=== PATIENT | male | born 2000 | race Asian ===

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

== ENCOUNTER 2021-01-07 07:31 | Outpatient (CLI) | payer MEDICAID ==
--- NOTE | 2021-01-07 08:19 | CT Report ---
PROCEDURE: HEAD WO INDICATIONS: MEMORY IMPAIRMENT TECHNIQUE: Noncontrast 4.5 mm thick angled axial sections acquired from the foramen magnum to the vertex. For r adiation dose reduction, the following was used: automated exposure control, adjustment of mA and/or kV according to patient size. COMPARISON: None. FINDINGS: Image quality: Excellent. CSF spaces: Basal cisterns are patent. No extra-axial fluid collections. Ventricles are normal in size and shape. Brain: No midline shift. No intracranial masses or hemorrhage. Cedillo-white matter interface is norm al. Skull and face: Calvarium and visualized facial bones are intact, without suspicious lesions. Sinuses: Visualized sinuses and mastoids are clear. IMPRESSION: Normal for age, source of reported memory impairment is not seen. Reviewed by: Chad Moreno MD on 01/07/2021 8:18 AM PDT Approved by: Chad Moreno MD on 01/07/2021 8:18 AM PDT Station ID: [id number]
== END 2021-01-07 07:32 | disposition home or self-care (01) ==
LOC: DI 07:31
PROVIDERS: ATTEND Family Medicine
DX: R41.3 Other amnesia (principal)

== ENCOUNTER 2022-07-03 13:16 | Emergency (ER) | payer MEDICAID ==
--- NOTE | 2022-07-03 13:42 | ED Physician Documentation ---
History of Present Illness - Stated complaint Stated Complaint: R LEG PX - Chief complaint Chief Complaint: Ext Problem - Additonal information Additional information: 21-year-old male presents emergency department for evaluation of 1 month of right posterior thigh/hamstring gluteal pain. Reports that it began nonspecifically without any falls or trauma and initially he was able to manage the pain with Motrin but it is no longer effective. Now due to the pain he has difficulty bearing weight in fact he collapsed when I asked him to stand when getting out of bed. There is been no swelling or erythema. No history of similar in the past. Review of Systems Constitutional: denies: Fever, Chills Eyes: reports: Reviewed and negative Nose: reports: Reviewed and negative GI: reports: Reviewed and negative : reports: Reviewed and negative Musculoskeletal: reports: Extremity pain Neurologic: denies: Generalized weakness, Focal weakness, Numbness, Difficulty speaking Psychiatric: reports: Reviewed and negative PD PAST MEDICAL HISTORY - Past Medical History Cardiovascular: None Respiratory: None Endocrine/Autoimmune: None - Past Surgical History Past Surgical History: No - Present Medications Home Medications: Ambulatory Orders Medication Instructions Recorded Confirmed Cetirizine HCl [Zyrtec] 10 mg PO DAILY #5 capsule 06/02/15 dexAMETHasone [Decadron] 4 mg PO DAILY #5 tablet 06/02/15 Cetirizine [ZyrTEC] 10 mg PO DAILY #30 tablet 07/11/20 predniSONE [Deltasone] 10 mg PO [id number] #42 tab 07/11/20 predniSONE [Prednisone] 40 mg PO DAILY #10 tablet 08/19/20 predniSONE [Deltasone] 40 mg PO DAILY 5 Days #10 tablet 07/03/22 - Allergies Allergies/Adverse Reactions: Allergies Allergy/AdvReac Type Severity Reaction Status Date / Time No Known Drug Allergies Allergy Verified 07/03/22 13:25 - Social History Does the pt smoke?: No Smoking Status: Never smoker Does the pt drink ETOH?: No Does the pt have substance abuse?: No PD ED PE EXPANDED - General General: Alert, No acute distress - Cardiac Cardiac: Regular Rate, Radial strong equal, Pedal strong equal - Respiratory Respiratory: Clear to ausultation kendall. No: Distress, Labored - Abdomen Abdomen: Normal Bowel sounds. No: Tender to palpation - Extremities Extremities: Right thigh (Tenderness with palpation of the posterior hamstring as it extends up into the gluteal mass. No obvious mass, fluctuance erythema or swelling. Passive range of motion of the hip induces pain in the posterior hamstring. No tenderness of the proximal Femur or right lateral thigh. ), Pedal Pulses Present Results - Vitals Vitals: Vital Signs - 24 hr 07/03/22 13:21 Temperature 36.8 C Heart Rate 85 Respiratory 16 Rate Blood Pressure 142/85 H O2 Saturation 97 Oxygen O2 Source Room air - Labs Labs: Laboratory Tests 07/03/22 07/03/22 13:46 13:46 WBC 5.6 RBC 5.48 Hgb 16.2 Hct 46.8 MCV 85.4 MCH 29.6 MCHC 34.6 RDW 12.6 Plt Count 249 MPV 10.1 Neut # (Auto) 2.8 Lymph # (Auto) 2.3 [place] # (Auto) 0.4 Eos # (Auto) 0.1 Baso # (Auto) 0.0 Absolute Nucleated RBC 0.00 Nucleated RBC % 0.0 Sodium 141 Potassium 4.1 Chloride 104 Carbon Dioxide 30 Anion Gap 7.0 BUN 14 Creatinine 0.9 Estimated GFR (MDRD) 108 Glucose 100 Calcium 9.6 Total Bilirubin 0.8 AST 36 ALT 86 H Alkaline Phosphatase 38 L Total Protein 8.0 Albumin 4.8 Globulin 3.2 Albumin/Globulin Ratio 1.5 Lipase 27 - Rads (name of study) CR right leg/hip Radiology: Final report received (Unremarkable CT of the right upper thigh) PD MEDICAL DECISION MAKING - ED course Complexity details: reviewed results, re-evaluated patient, considered differential, d/w patient ED course: 21-year-old male presents emergency department for evaluation of 1 month worsening pain in the right posterior thigh. No history of falls or trauma. He has preserved muscle strength in the entire leg though any attempt to bear weight or walk on it is met with increased pain and buckling down to the knees. Here in the emergency department a CBC was without acute worrisome findings. His electrolytes were essentially unremarkable. We did do a CT of the right hip and thigh searching for occult fracture or sarcoma and it was unremarkable. The patient had minimal pain relief after a dose of Dilaudid. He has been able to ambulate in the emergency department using a walker. Departure - Departure Disposition: 01 Home, Self Care Clinical Impression: Right thigh pain Condition: Stable Record reviewed to determine appropriate education?: Yes Prescriptions: predniSONE [Deltasone] 40 mg PO DAILY 5 Days #10 tablet Comments: Kennedi The labs today were essentially normal. The CT that we did of your right hip and thigh was normal. The cause of your pain is not clear at this time but we will do a short course of steroids to see if that will help with pain and inflammation. I encourage you to follow closely with your primary care provider. This course of medication does not work you may benefit from being seen by a physical therapist. Return to the emergency department if you develop numbness in your genital area, have lost control of bowel or bladder function or sudden weakness in your leg
[2022-07-03] MEDS ORDERED: HYDROmorphone 1 MG/ML CARPUJECT IVP STA (13:44)
[2022-07-03 13:51] LABS: BASOPHILS % (AUTO) 0.5 %; EOSINOPHILS # (AUTO) 0.1 10^3/uL (0.0-0.7); HCT - HEMATOCRIT 46.8 % (42.0-52.0); HGB - HEMOGLOBIN 16.2 g/dL (14.0-18.0); LYMPHOCYTES # (AUTO) 2.3 10^3/uL (1.5-3.5); LYMPHOCYTES % (AUTO) 40.7 %; MEAN CORPUSCULAR HEMOGLOBIN 29.6 pg (27.0-31.0); MEAN CORPUSCULAR HGB CONC 34.6 g/dL (32.0-36.0); MEAN CORPUSCULAR VOLUME 85.4 fL (80.0-94.0); MEAN PLATELET VOLUME 10.1 fL (7.4-11.4); MONOCYTES # (AUTO) 0.4 10^3/uL (0.0-1.0); MONOCYTES % (AUTO) 6.6 %; NEUTROPHILS # (AUTO) 2.8 10^3/uL (1.5-6.6); PLT - PLATELET COUNT 249 10^3/uL (130-450); RED BLOOD COUNT 5.48 10^6/uL (4.70-6.10); RED CELL DISTRIBUTION WIDTH 12.6 % (12.0-15.0); WHITE BLOOD COUNT 5.6 x10^3/uL (4.8-10.8)
[2022-07-03 14:04] LABS: ALBUMIN 4.8 g/dL (3.2-5.5); ALBUMIN/GLOBULIN RATIO 1.5 (1.0-2.2); BILIRUBIN,TOTAL 0.8 mg/dL (0.2-1.0); CALCIUM 9.6 mg/dL (8.5-10.3); CREATININE 0.9 mg/dL (0.6-1.2); POTASSIUM 4.1 mmol/L (3.5-5.0)
--- NOTE | 2022-07-03 15:56 | CT Report ---
PROCEDURE: LOWER EXTREMITY W - RT INDICATIONS: 21-year-old male with one-month history of posterior right thigh pain TECHNIQUE: After administration of contrast 3 mm axial sections acquired of the right upper femur, with coronal and sagittal reformats. For radiation dose reduction, the following was used: automated exposure co ntrol, adjustment of mA and/or kV according to patient size. CONTRAST: IV CONTRAST: Optiray 320 ml: 100 PO CONTRAST: *NO PO CONTRAST COMPARISON: None. FINDINGS: Image quality: Excellent. Bones: Normal bone mineralization. No intrinsic osseous lesion. Joint spaces are preserved. No fract ure or dislocation Soft tissues: Unremarkable. Normal musculature. Fascial planes are maintained. Subcutaneous unremark able. Normal vasculature. IMPRESSION: Unremarkable CT of the right upper thigh Reviewed by: Stan Toribio MD on 07/03/2022 2:55 PM AKDT Approved by: Stan Toribio MD on 07/03/2022 2:55 PM AKDT Station ID: [id number]
[2022-07-03 16:12] VITALS: BP 138/72
== END 2022-07-03 16:16 | disposition home or self-care (01) ==
LOC: ED 13:16
DX: M79.661 Pain in right lower leg (principal)
CPT/HCPCS: 36415; 73701; 80053; 83690; 85025; 96374; 99282; 99284; J1170; Q9967

== ENCOUNTER 2022-07-16 12:21 | Outpatient (CLI) | payer MEDICAID | END 2022-07-16 12:22 | disposition EMS.NT | LOC: EMS 12:21 | DX: M79.605 Pain in left leg (principal) ==

== ENCOUNTER 2022-07-16 12:59 | Emergency (ER) | payer MEDICAID ==
[2022-07-16 15:13] LABS: BASOPHILS % (AUTO) 0.3 %; EOSINOPHILS # (AUTO) 0.1 10^3/uL (0.0-0.7); EOSINOPHILS % (AUTO) 1.5 %; HCT - HEMATOCRIT 46.2 % (42.0-52.0); HGB - HEMOGLOBIN 15.8 g/dL (14.0-18.0); LYMPHOCYTES # (AUTO) 2.5 10^3/uL (1.5-3.5); LYMPHOCYTES % (AUTO) 27.6 %; MEAN CORPUSCULAR HEMOGLOBIN 29.3 pg (27.0-31.0); MEAN CORPUSCULAR HGB CONC 34.2 g/dL (32.0-36.0); MEAN CORPUSCULAR VOLUME 85.7 fL (80.0-94.0); MEAN PLATELET VOLUME 9.8 fL (7.4-11.4); MONOCYTES # (AUTO) 0.4 10^3/uL (0.0-1.0); MONOCYTES % (AUTO) 4.5 %; NEUTROPHILS # (AUTO) 5.9 10^3/uL (1.5-6.6); NEUTROPHILS % (AUTO) 65.8 %; PLT - PLATELET COUNT 227 10^3/uL (130-450); RED BLOOD COUNT 5.39 10^6/uL (4.70-6.10); WHITE BLOOD COUNT 8.9 x10^3/uL (4.8-10.8)
[2022-07-16 15:31] LABS: ALBUMIN 4.7 g/dL (3.2-5.5); ALBUMIN/GLOBULIN RATIO 1.5 (1.0-2.2); BILIRUBIN,TOTAL 0.9 mg/dL (0.2-1.0); CALCIUM 9.8 mg/dL (8.5-10.3); POTASSIUM 4.1 mmol/L (3.5-5.0); TOTAL PROTEIN 7.8 g/dL (6.7-8.2)
[2022-07-16] MEDS: MORPHINE 2 MG/ML CARPUJECT IVP STA (15:39)
[2022-07-16] MEDS: KETOROLAC 30 MG/ML VIAL IVP STA (15:45)
[2022-07-16] MEDS: LIDOCAINE PATCH 5% TOP STA (15:48)
--- NOTE | 2022-07-16 15:55 | ED Physician Documentation ---
PD HPI BACK PAIN - Stated complaint Stated Complaint: R LEG PAIN - Chief complaint Chief Complaint: Back Pain - History obtained from History obtained from: Patient - Additional information Additional information: Patient is a 21-year-old male presenting for evaluation of pain to the right buttocks that radiates to the right leg that has been present for 2 Months. He denies any known trauma or injury that started the pain. He was seen in the emergency department a few weeks ago and given prednisone which she states initially helped but the pain has again returned over the last few days. He use s Motrin or acetaminophen once or twice a day. He denies any recent exertional activity on his legs.Certain movements make his pain worse. Rest makes them better. He has not tried ice or heat. He denies fever, chest pain, IV drug use, known malignancy, abdominal pain, dysuria, urinary or bowel incontinence. Review of Systems Constitutional: denies: Fever Nose: denies: Congestion Throat: denies: Sore throat Cardiac: denies: Chest pain / pressure Respiratory: denies: Dyspnea GI: denies: Abdominal Pain, Vomiting : denies: Dysuria, Incontinent Musculoskeletal: reports: Back pain, Extremity pain Neurologic: denies: Headache, Head injury PD PAST MEDICAL HISTORY - Past Medical History Past Medical History: No Cardiovascular: None Respiratory: None Endocrine/Autoimmune: None - Past Surgical History Past Surgical History: No - Present Medications Home Medications: Ambulatory Orders Medication Instructions Recorded Confirmed Cyclobenzaprine [Flexeril] 10 mg PO TID PRN #20 tablet 07/16/22 Lidocaine Patch 5% [Lidoderm Patch] 1 patch TOP DAILY PRN #10 patch 07/16/22 Oxycodone HCl/Acetaminophen 1 each PO Q6H PRN #10 tablet 07/16/22 [Percocet 5-325 mg Tablet] predniSONE [Deltasone] 20 mg PO [id number] #21 tab 07/16/22 - Allergies Allergies/Adverse Reactions: Allergies Allergy/AdvReac Type Severity Reaction Status Date / Time No Known Drug Allergies Allergy Verified 07/16/22 13:36 - Social History Does the pt smoke?: No Smoking Status: Never smoker Does the pt drink ETOH?: No Does the pt have substance abuse?: No - Immunizations Immunizations are current?: Yes PD ED PE NORMAL - General General: Alert and oriented X 3, No acute distress, Well developed/nourished - HEENT HEENT: Atraumatic, Moist mucous membranes - Neck Neck: Supple, no meningeal sign - Cardiac Cardiac: RRR, Strong equal pulses - Respiratory Respiratory: No respiratory distress, Clear bilaterally - Abdomen Abdomen: Normal bowel sounds, Soft, Non tender, Non distended - Rectal Rectal: Other (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, No saddle anesthesia, normal rectal tone) - Derm Derm: Warm and dry - Extremities Extremities: No deformity, No edema, No calf tenderness / cord, Other (Tenderness into right buttock with no redness or swelling) - Neuro Neuro: Alert and oriented X 3, No motor deficit, No sensory deficit, Normal speech Results - Vitals Vitals: Vital Signs - 24 hr 07/16/22 07/16/22 07/16/22 13:29 15:50 17:00 Temperature 36.6 C 36.7 C Heart Rate 80 77 87 Respiratory 16 15 16 Rate Blood Pressure 137/89 H 138/82 H 131/80 H O2 Saturation 99 99 100 Oxygen O2 Source Room air - Labs Labs: Laboratory Tests 07/16/22 07/16/22 15:07 15:07 WBC 8.9 RBC 5.39 Hgb 15.8 Hct 46.2 MCV 85.7 MCH 29.3 MCHC 34.2 RDW 13.0 Plt Count 227 MPV 9.8 Neut # (Auto) 5.9 Lymph # (Auto) 2.5 [place] # (Auto) 0.4 Eos # (Auto) 0.1 Baso # (Auto) 0.0 Absolute Nucleated RBC 0.00 Nucleated RBC % 0.0 Sodium 140 Potassium 4.1 Chloride 102 Carbon Dioxide 30 Anion Gap 8.0 BUN 15 Creatinine 1.0 Estimated GFR (MDRD) 95 Glucose 91 Calcium 9.8 Total Bilirubin 0.9 AST 48 H ALT 162 H Alkaline Phosphatase 37 L Total Protein 7.8 Albumin 4.7 Globulin 3.1 Albumin/Globulin Ratio 1.5 Lipase 27 PD MEDICAL DECISION MAKING - ED course Complexity details: reviewed results, re-evaluated patient, d/w patient ED course: Pt with R buttock to leg pain ongoing x 2 months. No red flag signs/symptoms. Well appearing. Normal rectal tone and strength to legs. Ct L spine with findings suggestive of S1 nerve impingement which goes along with patient's symptoms. Discussed plan with medications including steroid taper and need for f/u with PCP as may need further treatment. Pt advised on concerning symptoms to return for. Departure - Departure Disposition: 01 Home, Self Care Clinical Impression: Sciatica Qualifiers: Laterality: right Qualified Code(s): M54.31 - Sciatica, right side Condition: Stable Instructions: ED Sciatica Prescriptions: predniSONE [Deltasone] 20 mg PO [id number] #21 tab Cyclobenzaprine [Flexeril] 10 mg PO TID PRN #20 tablet PRN Reason: Spasms Lidocaine Patch 5% [Lidoderm Patch] 1 patch TOP DAILY PRN #10 patch PRN Reason: pain Oxycodone HCl/Acetaminophen [Percocet 5-325 mg Tablet] 1 each PO Q6H PRN #10 tablet PRN Reason: pain Comments: You were evaluated for increased pain to your right buttocks into your right leg. Your labs are overall reassuring with no significant findings. A CT scan of your lumbar spine that was obtained which shows symptoms concerning for sciatica and irritation of your right S1 nerve root. I will start you on a prednisone taper which is a longer course and you were previously on. I would also recommend continuing with lidocaine patches and anti-inflammatory such as ibuprofen. I will also send a small amount of narcotic pain medication as well as muscle relaxers but I would not recommend using these at the same time. I have sent prescriptions to [facility] in [place]. I do recommend that you have close follow-up with your primary care doctor as you may need further treatment for sciatica including referral to physical therapy. I am prescribing a short course of narcotic pain medication for you. These are potentially dangerous and addictive medications that should be used carefully. These medications may constipate you. Take an [id number] stool softener (docusate) twice daily with plenty of water while taking these medications. If you go 24 hours without a bowel movement, take [id number] miralax, per package instructions. Do not drink or drive while taking these medications. If you received narcotic or sedating medications while in the emergency department, do not drive for 24 hours. Store this medication in a safe, secure place and out of reach of children. It is a violation of federal law to give or sell this medication to another person or to use in a manner other than prescribed. The ED will not refill narcotic prescriptions, including prescriptions lost or stolen. To dispose of unwanted medications: 1. [facility] at [address] in [place] has a medication drop box. They accept prescription medications (in pill form) Tuesday through Tuesday 9:00 a.m. to 5:00 p.m. 2. The [facility] accepts prescription medications (in pill form only) for disposal year round. Call for more information. 3. Contact the [facility] for the next [facility] sponsored prescription drug collection event. , [phone], or [phone]; Note that many narcotic pain relievers also contain Tylenol/acetaminophen. Please ensure that your total dose of acetaminophen from all sources does not exceed 3 g (3000 mg) per day. Discharge Date/Time: 07/16/22 17:12
--- NOTE | 2022-07-16 16:34 | CT Report ---
PROCEDURE: LUMBAR SPINE WO INDICATIONS: radicular pain/worsening TECHNIQUE: Noncontrast 3 mm thick sections acquired from the T12 level to the sacrum. Sagittal and coronal refo rmats were constructed. For radiation dose reduction, the following was used: automated exposure co ntrol, adjustment of mA and/or kV according to patient size. COMPARISON: No pertinent prior study. FINDINGS: At L5-S1, there is 4 mm anterolisthesis of L5 on S1 which produces a pseudo-bulge that combines with a true disc bulge and broad-based protrusion to produce moderate subarticular zone stenosis. Disc mat erial displaces the bilateral descending S1 nerve roots and both subarticular zones. There is mild bi lateral neural foraminal narrowing due to foraminal components of the disc bulge. At the remaining levels there is no significant degenerative change, spinal canal stenosis, or neural foraminal stenosis. Normal lumbar vertebral body height and alignment otherwise. No fracture. No suspicious lytic or negin tic osseous lesion. Regional unenhanced soft tissues demonstrate no significant abnormality. IMPRESSION: Anterolisthesis of L5 on S1 which combines with spondylitic changes to produce moderate bilateral sub articular zone stenosis resulting in suspected impingement of the descending right S1 nerve roots in the right subarticular zone. Reviewed by: Grzegorz Avilez MD on 07/16/2022 4:32 PM PDT Approved by: Grzegorz Avilez MD on 07/16/2022 4:32 PM PDT Station ID: [id number]
[2022-07-16 17:01] VITALS: BP 131/80
== END 2022-07-16 17:12 | disposition home or self-care (01) ==
LOC: ED 12:59
DX: M54.31 Sciatica, right side (principal)
CPT/HCPCS: 36415; 72131; 80053; 83690; 85025; 96374; 96375; 99284; A9270